=== PATIENT | male | born 1975 | race Caucasian/White ===

== ENCOUNTER 2017-08-21 12:20 | Emergency (ER) | payer SELFPAY ==
[~2017-08-21] VITALS: Ht 180.3 cm; Wt 84.0 kg
[2017-08-21] MEDS ORDERED: BACITRACIN ZINC OINT UDPKT TOP ONE (12:45)
[2017-08-21] MEDS ORDERED: LIDOCAINE HCL 1% 20ML VIAL (Pyxis) INJ MC ONE ×2 (12:45→16:30)
[2017-08-21] MEDS ORDERED: LIDOCAINE HCL/PF 1% 10 MG/ML 5ML VIAL IJ ONE (17:00)
[2017-08-21] MEDS ORDERED: KETOROLAC 60MG/2ML VIAL IM ONE (17:30)
[2017-08-21 17:44] VITALS: BP 139/87
== END 2017-08-21 17:47 | disposition home or self-care (01) ==
LOC: ER 13:20
DX: S61.411A Laceration without foreign body of right hand, initial encounter (principal); W22.8XXA Striking against or struck by other objects, initial encounter; Y93.89 Activity, other specified; Y92.89 Other specified places as the place of occurrence of the external cause; Y99.8 Other external cause status
CPT/HCPCS: 12002; 73130; 96372; 99284; J1885; J3490